=== PATIENT | female | born 1980 | race Caucasian/White ===

== ENCOUNTER 2024-11-12 21:03 | Observation (INO) | payer OTHER ==
--- NOTE | 2024-11-12 22:01 | ERPHSYRPT ---
- History of Present Illness Time Seen by Provider: 11/12/24 21:59 Historian: patient Exam Limitations: no limitations Patient Subjective Stated Complaint: PT. STATES, "I HAVE RT. LOWER QUADRANT ABDOMINAL PAIN STARTED THIS AM AROUND 7AM. IT HURTS WORSE WHEN I WALK OR STAND AND IT HELPS WITH I PUSH IN ON IT." Triage Nursing Assessment: PT. AMBULATED TO ROOM WITHOUT DIFF, A&OX3, SKIN P/W/D, RESP EVEN UNLABORED, GUARDING RT. LOWER ABD. Physician History: 44-year-old female presents to our ED with concerns of appendicitis. Patient is a reading assistant. Patient states her right lower quadrant abdominal pain started this morning. Pain has gotten progressively worse throughout the day. No trauma no fever. No vomiting. Symptoms are progressive. Symptoms are moderate in intensity. Pain worse with ambulation. Palpation reproduces the pain as well. Patient declined pain medication. Patient voices no other complaints or concerns at this time. Portions of this note were created with voice recognition technology. There may be grammatical, spelling, punctuation or sound alike errors Timing/Duration: today Activities at Onset: none Quality: aching Abdominal Pain Onset Location: RLQ Pain Radiation: no radiation Severity of Pain-Max: moderate Severity of Pain-Current: mild Modifying Factors: Improves With: nothing Associated Symptoms: denies symptoms Previous symptoms: no prior history Allergies/Adverse Reactions: Penicillins Allergy (Verified 11/12/24 22:32) Home Medications: Omeprazole 20 mg PO DAILY 11/12/24 [History] Hx Tetanus, Diphtheria Vaccination/Date Given: No Hx Influenza Vaccination/Date Given: No Hx Pneumococcal Vaccination/Date Given: Yes Immunizations Up to Date: No Travel Risk - International Travel Have you traveled outside of the country in past 3 weeks: No - Emerging Infectious Disease Are you exhibiting symptoms associated with any current EIDs: Yes Symptoms: Abdominal Pain - Review of Systems Constitutional: No Symptoms, No Fever, No Chills Eyes: No Symptoms Ears, Nose, & Throat: No Symptoms Respiratory: No Symptoms, No Cough, No Dyspnea Cardiac: No Symptoms, No Chest Pain, No Edema, No Syncope Abdominal/Gastrointestinal: No Symptoms, No Abdominal Pain, No Nausea, No Vomiting, No Diarrhea Genitourinary Symptoms: No Symptoms, No Dysuria Musculoskeletal: No Symptoms, No Back Pain, No Neck Pain Skin: No Symptoms, No Rash Neurological: No Symptoms, No Dizziness, No Focal Weakness, No Sensory Changes Psychological: No Symptoms Endocrine: No Symptoms Hematologic/Lymphatic: No Symptoms Immunological/Allergic: No Symptoms All Other Systems: Reviewed and Negative - Past Medical History Pertinent Past Medical History: Yes Neurological History: No Pertinent History ENT History: No Pertinent History Cardiac History: No Pertinent History Respiratory History: No Pertinent History Endocrine Medical History: No Pertinent History Musculoskeletal History: No Pertinent History GI Medical History: GERD History: No Pertinent History Psycho-Social History: No Pertinent History Female Reproductive Disorders: No Pertinent History - Past Surgical History Past Surgical History: No Neuro Surgical History: No Pertinent History Cardiac: No Pertinent History Respiratory: No Pertinent History Gastrointestinal: No Pertinent History Genitourinary: No Pertinent History Musculoskeletal: No Pertinent History Female Surgical History: No Pertinent History - Female History Hx Last Menstrual Period: 3 WKS AGO Hx Now: No - Social History Smoking Status: Never smoker Exposure to second hand smoke: No Drug Use: none - Social Determinants of Health Will the patient participate in the screening: Declined to provide - Nursing Vital Signs Nursing Vital Signs: Initial Vital Signs Temperature 97.4 F 11/12/24 21:03 Pulse Rate 96 H 11/12/24 21:03 Respiratory Rate 18 11/12/24 21:03 Blood Pressure 134/89 11/12/24 21:03 O2 Sat by Pulse Oximetry 100 11/12/24 21:03 Pain Scale Pain Intensity 5 - Physical Exam General Appearance: no apparent distress, alert Eye Exam: PERRL/EOMI, eyes nml inspection Ears, Nose, Throat Exam: normal ENT inspection, pharynx normal, moist mucous membranes Neck Exam: normal inspection, non-tender, supple, full range of motion Respiratory Exam: normal breath sounds, lungs clear, airway intact, No respiratory distress Cardiovascular Exam: regular rate/rhythm, normal heart sounds Gastrointestinal/Abdomen Exam: soft, No tenderness, No mass Back Exam: normal inspection, normal range of motion, No CVA tenderness, No vertebral tenderness Extremity Exam: normal inspection, normal range of motion, pelvis stable Neurologic Exam: alert, oriented x 3, cooperative, normal mood/affect, sensation nml, No motor deficits Skin Exam: normal color, warm, dry Lymphatic Exam: No adenopathy SpO2 Interpretation: normal SpO2: 100 O2 Delivery: Room Air - Course Nursing assessment & vital signs reviewed: Yes - CT Exams Abdomen/Pelvis CT Interpretation: Tele-radiologist Report (Appendicitis. Left adrenal lesion) Ordered Tests: Active Orders 24 hr Category Date Time Status IV Insertion STAT Care 11/12/24 21:53 Active ABDOMEN AND PELVIS W/0 CONTRAS [CT] Stat Exams 11/12/24 21:53 Completed CBC W DIFF Stat Lab 11/12/24 22:00 Completed CMP Stat Lab 11/12/24 22:00 Completed HCG QUALITATIVE, URINE Stat Lab 11/12/24 21:53 Completed UA W/RFX UR CULTURE Stat Lab 11/12/24 21:53 Completed Transfer Order Routine Transfer 11/13/24 Ordered Medication Summary Generic Name Dose Route Start Last Admin Trade Name Freq PRN Reason Stop Dose Admin Levofloxacin/Dextrose 500 mg in 100 mls @ 100 mls/hr 11/13/24 00:18 11/13/24 01:08 Levofloxacin 500mg/100ml D5w IV 11/13/24 01:17 100 mls/hr STAT STA 100 mls/hr Administration Discontinued Medications Generic Name Dose Route Start Last Admin Trade Name Freq PRN Reason Stop Dose Admin Metronidazole 500 mg in 100 mls @ 200 mls/hr 11/13/24 00:18 11/13/24 00:22 Flagyl 500 Mg Ivpb IV 11/13/24 00:47 200 mls/hr STAT STA 200 mls/hr Administration Metronidazole Confirm 11/13/24 00:21 Flagyl 500 Mg Ivpb Administered 11/13/24 00:22 Dose 500 mg in 100 mls @ ud IV .K-MED ONE Lab/Rad Data: Laboratory Result Diagrams 11/12/24 22:00 11/12/24 22:00 Laboratory Results 11/12/24 11/12/24 11/12/24 Range/Units 22:00 22:00 21:53 WBC 15.8 H (3.98-10.04) x10^3/uL RBC 4.77 (3.93-5.22) x10^6/uL Hgb 12.3 (11.2-15.7) g/dL Hct 37.8 (34.1-44.9) % MCV 79.2 L (79.4-94.8) fL MCH 25.8 (25.6-32.2) pg MCHC 32.5 (32.2-35.5) g/dL RDW 13.9 (11.7-14.4) % Plt Count 357 (182-369) x10^3/uL MPV 10.1 (9.4-12.3) fL Gran % 68.6 (34.0-71.1) % Immature Gran % (Auto) 0.4 (0.001-0.429) % Nucleat RBC Rel Count 0.0 (0.00-0.2) % Eos # (Auto) 0.15 (0.04-0.36) x10^3/uL Immature Gran # (Auto) 0.06 H (0.001-0.031) x10^3u/L Absolute Lymphs (auto) 3.67 (1.18-3.74) x10^3/uL Absolute Monos (auto) 1.03 H (0.24-0.86) x10^3/uL Absolute Nucleated RBC 0.00 (0.00-0.012) x10^3u/L Lymphocytes % 23.2 (19.3-51.7) % Monocytes % 6.5 (4.7-12.5) % Eosinophils % 0.9 (0.7-5.8) % Basophils % 0.4 (0.1-1.2) % Absolute Granulocytes 10.87 H (1.56-6.13) x10^3/uL Basophils # 0.06 (0.01-0.08) x10^3/uL Sodium 138 (135-145) mmol/L Potassium 4.0 (3.5-5.1) mmol/L Chloride 104 (98-107) mmol/L Carbon Dioxide 22 (22-30) mmol/L Anion Gap 15.3 H (5-15) MEQ/L BUN 17 (7-17) mg/dL Creatinine 0.74 (0.52-1.04) mg/dL Estimated GFR 103.5 ML/MIN Glucose 101 (74-106) mg/dL Calcium 8.8 (8.4-10.2) mg/dL Total Bilirubin 0.40 (0.2-1.3) mg/dL AST 23 (14-36) U/L ALT 17 (0-35) U/L Alkaline Phosphatase 68 (38-126) U/L Serum Total Protein 7.5 (6.3-8.2) g/dL Albumin 4.3 (3.5-5.0) g/dL Urine Color (Yellow) Urine Appearance (Clear) Urine pH (4.6-8.0) Ur Specific [place] (1.005-1.030) Urine Protein (Negative) Urine Glucose (UA) (Negative) mg/dL Urine Ketones (Negative) Urine Blood (Negative) Urine Nitrite (Negative) Urine Bilirubin (Negative) Urine Urobilinogen (0.2) mg/dL Ur Leukocyte Esterase (Negative) U Hyaline Cast (Auto) (0-2) /LPF Urine Microscopic RBC (0-5) /HPF Urine Microscopic WBC (0-5) /HPF Ur Epithelial Cells (None Seen) /HPF Urine Bacteria (None Seen) /HPF Urine Culture Reflexed (NO) Urine HCG, Qual NEGATIVE (NEGATIVE) 11/12/24 Range/Units 21:53 WBC (3.98-10.04) x10^3/uL RBC (3.93-5.22) x10^6/uL Hgb (11.2-15.7) g/dL Hct (34.1-44.9) % MCV (79.4-94.8) fL MCH (25.6-32.2) pg MCHC (32.2-35.5) g/dL RDW (11.7-14.4) % Plt Count (182-369) x10^3/uL MPV (9.4-12.3) fL Gran % (34.0-71.1) % Immature Gran % (Auto) (0.001-0.429) % Nucleat RBC Rel Count (0.00-0.2) % Eos # (Auto) (0.04-0.36) x10^3/uL Immature Gran # (Auto) (0.001-0.031) x10^3u/L Absolute Lymphs (auto) (1.18-3.74) x10^3/uL Absolute Monos (auto) (0.24-0.86) x10^3/uL Absolute Nucleated RBC (0.00-0.012) x10^3u/L Lymphocytes % (19.3-51.7) % Monocytes % (4.7-12.5) % Eosinophils % (0.7-5.8) % Basophils % (0.1-1.2) % Absolute Granulocytes (1.56-6.13) x10^3/uL Basophils # (0.01-0.08) x10^3/uL Sodium (135-145) mmol/L Potassium (3.5-5.1) mmol/L Chloride (98-107) mmol/L Carbon Dioxide (22-30) mmol/L Anion Gap (5-15) MEQ/L BUN (7-17) mg/dL Creatinine (0.52-1.04) mg/dL Estimated GFR ML/MIN Glucose (74-106) mg/dL Calcium (8.4-10.2) mg/dL Total Bilirubin (0.2-1.3) mg/dL AST (14-36) U/L ALT (0-35) U/L Alkaline Phosphatase (38-126) U/L Serum Total Protein (6.3-8.2) g/dL Albumin (3.5-5.0) g/dL Urine Color Yellow (Yellow) Urine Appearance Clear (Clear) Urine pH 5.0 (4.6-8.0) Ur Specific [place] >=1.030 A (1.005-1.030) Urine Protein Negative (Negative) Urine Glucose (UA) Negative (Negative) mg/dL Urine Ketones Negative (Negative) Urine Blood Negative (Negative) Urine Nitrite Negative (Negative) Urine Bilirubin Negative (Negative) Urine Urobilinogen 1.0 A (0.2) mg/dL Ur Leukocyte Esterase Negative (Negative) U Hyaline Cast (Auto) NONE SEEN (0-2) /LPF Urine Microscopic RBC 0-2 (0-5) /HPF Urine Microscopic WBC 0-2 (0-5) /HPF Ur Epithelial Cells Few (None Seen) /HPF Urine Bacteria None Seen (None Seen) /HPF Urine Culture Reflexed NO (NO) Urine HCG, Qual (NEGATIVE) - Progress Progress: improved Progress Note: 44-year-old female BMI of 44.6 presents to our ED for evaluation of right lower quadrant pain. Pain started this morning. Pain progressively worse throughout the day. Physical exam reveals right lower quadrant tenderness to palpation. I spoke to at approximately 12:30 AM. He accepts the consultation. He currently plans on performing an appendectomy at 530 this morning. I spoke to warehouse shipping supervisor. She will arrange appendectomy this morning with an incisi on time of 5:30 AM. Plan of care discussed with patient. She agrees to admission at [facility] for further evaluation and treatment. Patient is currently n.p.o. patient's last meal was 6 PM yesterday evening Portions of this note were created with voice recognition technology. There may be grammatical, spelling, punctuation or sound alike errors Complexity of problem addressed is moderate acute complicated. No critical care time. Complexity of data reviewed and analyzed is extensive. Test ordered chest reviewed results analyzed and correlated clinically with history and physical exam. Management discussed with hospitalist who accepts admission to observation. Case discussed with general surgeon. Risk of complication and or risk of morbidity/mortality of patient management is high. Patient requires hospitalization for further evaluation and treatment. Vital stable. Time spent admit patient is approximately 15 minutes. Plan of care established for shared decision making. No social determinants of health present to impede follow-up. Case discussed with hospitalist Dr. Freedman at 1:08 AM. Portions of this note were created with voice recognition technology. There may be grammatical, spelling, punctuation or sound alike errors 11/13/24 00:40 Discussed with : Mayda Counseled pt/family regarding: lab results, diagnosis, rad results - Departure Departure Disposition: Observation Clinical Impression: Left adrenal lesion, Appendicitis, Leukocytosis, Abdominal pain Condition: Stable Critical Care Time: No Referrals: DOCTOR,NO FAMILY [Primary Care Provider] - Follow up/PCP as directed
[2024-11-12 22:15] LABS: Absolute Neutrophil Ct (ANC) 10.87 x10^3/uL (1.56-6.13); BASOPHIL % 0.4 % (0.1-1.2); Basophil (Absolute #) 0.06 x10^3/uL (0.01-0.08); Eosinophil % 0.9 % (0.7-5.8); Eosinophil (Absolute #) 0.15 x10^3/uL (0.04-0.36); Hematocrit 37.8 % (34.1-44.9); Hemoglobin 12.3 g/dL (11.2-15.7); IMMATURE GRAN # 0.06 x10^3u/L (0.001-0.031); IMMATURE GRAN % 0.4 % (0.001-0.429); Lymphocyte (Absolute #) 3.67 x10^3/uL (1.18-3.74); Lymphocytes % 23.2 % (19.3-51.7); Mean Cell Volume 79.2 fL (79.4-94.8); Mean Corpuscular Hemoglobin 25.8 pg (25.6-32.2); Mean Corpuscular Hgb Concent. 32.5 g/dL (32.2-35.5); Mean Platelet Volume 10.1 fL (9.4-12.3); Monocyte (Absolute #) 1.03 x10^3/uL (0.24-0.86); Monocytes % 6.5 % (4.7-12.5); Neutrophil % 68.6 % (34.0-71.1); Platelet Count 357 x10^3/uL (182-369); Red Blood Count 4.77 x10^6/uL (3.93-5.22); Red Cell Distribution Width 13.9 % (11.7-14.4); White Blood Count 15.8 x10^3/uL (3.98-10.04)
[2024-11-12 22:18] LABS: HCG URINE TEST NEGATIVE (NEGATIVE)
[2024-11-12 22:22] LABS: Appearance Clear (Clear); Bacteria None Seen /HPF (None Seen); Bilirubin Negative (Negative); Blood Negative (Negative); Epithelial Cells Few /HPF (None Seen); Glucose, Urine Negative (Negative); Hyaline Casts NONE SEEN /LPF (0-2); Ketones Negative (Negative); Leukocyte Esterase Negative (Negative); Nitrite Negative (Negative); Protein,Urine Dip Negative (Negative); RBC 0-2 /HPF (0-5); Specific Gravity >=1.030 (1.005-1.030); WBC 0-2 /HPF (0-5)
[2024-11-12 22:28] LABS: ALBUMIN 4.3 g/dL (3.5-5.0); ANION GAP 15.3 MEQ/L (5-15); BILIRUBIN,TOTAL 0.4 mg/dL (0.2-1.3); Calcium 8.8 mg/dL (8.4-10.2); Creatinine 1 0.74 mg/dL (0.52-1.04); EST GLOMERULAR FILTRATION RATE 103.5 ML/MIN; Total Protein 7.5 g/dL (6.3-8.2)
--- NOTE | 2024-11-12 23:40 | XRAY ---
CLINICAL HISTORY: Pain COMPARISON: No prior studies are available for comparison. TECHNIQUE: Non-contrast CT of the abdomen and pelvis was performed, with the following protocol: axial images, and reconstructed coronal and sagittal images. No intravenous contrast was administered. One of the following dose reduction techniques was utilized for this exam: Automated exposure control, adjustment of the mA and/or kV according to patient size, and use of iterative reconstruction. FINDINGS: Abdomen: Liver: Normal in size, shape, and density. No focal lesions, cysts, or masses were identified. Gallbladder and Biliary System: The gallbladder is normal in size and shape. No wall thickening, pericholecystic fluid, or gallstones were identified. Pancreas: Pancreatic head, body, and tail are visualized and appear normal in size and density. No pancreatic masses or calcifications were noted. Spleen: Normal in size, shape, and density. No splenic lesions or masses were identified. Kidneys and Adrenal Glands: Both kidneys are normal in size, shape, and position. Cortical thickness is within normal limits. No renal calculi or hydronephrosis. A well-defined oval-shaped hypodense lesion is seen measuring 2.9 x 2.2 cm in the left adrenal gland with fatty attenuation. The right adrenal gland is unremarkable. Appendix: The appendix is seen dilated measuring about 11.5 mm in cross-section with loss of aeration and being fluid-filled with nearby fat stranding and without an appendicolith. No evidence of appendiceal abscess or perforation. Pelvis: Urinary Bladder: Normal in contour and wall thickness. No intraluminal lesions. Uterus: Normal in size and contour. No masses or abnormal thickening. Ovaries: Not well visualized but no gross abnormalities noted. Vagina: Normal in contour and wall thickness. Cervix: No evidence of mass or abnormal thickening. Peritoneal and Retroperitoneal Structures: No free fluid or abnormal fluid collections were identified within the abdomen or pelvis. Enlarged right iliac lymph nodes are noted. Bowel: The visualized bowel loops are normal in caliber and appearance. No evidence of bowel obstruction or wall thickening. Colonic fecal loading Bones and Soft Tissues: Soft tissues are unremarkable. No fractures or abnormal masses were identified. Bilateral sacroiliitis is noted. Thoracic degenerative changes. Small paraumbilical hernia with omental fat content. CT cuts taken in the lower chest show left lung lingular small pneumonic consolidation with atelectasis. IMPRESSION: 1. Radiological appearances raise suspicion of acute appendicitis. No evidence of perforation or phlegmon formation. Clinical and laboratory correlation is advised. 2. Colonic fecal loading. 3. Left adrenal hypodense lesion as described with fatty attenuation likely suggesting adenoma. Electronically Signed by: Fletcher Chong MD. (11/12/2024 23:35:25 EDT)
[2024-11-13] MEDS ORDERED: FLAGYL 500 MG IVPB 500 MG/100 ML BAG IV ONE (00:21)
[2024-11-13] MEDS: FLAGYL 500 MG IVPB 500 MG/100 ML BAG IV STA (00:22)
[2024-11-13] MEDS ORDERED: Levofloxacin 500MG/100ML D5W 500 MG/100 ML BAG IV ONE (01:07)
[2024-11-13] MEDS: Levofloxacin 500MG/100ML D5W 500 MG/100 ML BAG IV STA (01:08)
[2024-11-13] MEDS ORDERED: MORPHINE SULFATE 4 MG INJ IV PRN (02:19)
[2024-11-13 02:32] LABS: INR 0.92 (0.8-3.0); PROTIME 10.1 SECONDS (9.4-12.5); PTT 25.6 SECONDS (25.1-36.5)
[2024-11-13] MEDS: Sodium Chloride 0.9% 1000 ML 1,000 ML IV SCH ×2 (02:36→11:42)
--- NOTE | 2024-11-13 02:48 | PCM.HP ---
History of Present Illness - Chief Complaint Chief Complaint: abdominal pain Date: 11/13/24 History of Present Illness: 44-year-old woman with no significant past medical history who presents with the acute onset of right lower quadrant abdominal pain this morning. Pain has been constant, progressively worsening, until it has been intermittently severe. It is stabbing in nature, worse with movement, and relieved only by rest. Not associate with fever, nausea, or dysuria, although she feels more pain when her bladder is full and she needs to urinate. - Review of Systems All Other Systems: Reviewed and Negative Medications & Allergies Home Medications: Home Medication List Omeprazole 20 mg PO DAILY 11/12/24 [History Confirmed 11/12/24] Allergies/Adverse Reactions: Allergies Allergy/AdvReac Type Severity Reaction Status Date / Time No Known Drug Allergies Allergy Unverified 11/13/24 02:26 - Past Medical History Past Medical History: No Neurological History: No Pertinent History ENT History: No Pertinent History Cardiac History: No Pertinent History Respiratory History: No Pertinent History Endocrine Medical History: No Pertinent History Musculoskelatal History: No Pertinent History GI Medical History: No Pertinent History History: No Pertinent History Pyscho-Social History: No Pertinent History Reproductive Disorders: No Pertinent History - Female History Are you now?: No - Past Surgical History Past Surgical History: No Neuro Surgical History: No Pertinent History Cardiac History: No Pertinent History Respiratory Surgery: No Pertinent History GI Surgical History: No Pertinent History Genitourinary Surgical Hx: No Pertinent History Musculskeletal Surgical Hx: No Pertinent History Female Surgical History: No Pertinent History Other Surgical History: Hx of tooth removal, states she had general anesthesia for this procedure, no difficulties Significant Family History: diabetes - Social History Smoking Status: Never smoker Exposure to second hand smoke: No Alcohol: None Drug Use: none - Social Determinants of Health Will the patient participate in the screening: Yes Do you worry about a steady place to live?: No Do you have any problems with any of the following?: No known problems In the past 12 months,have you had to go without utilities?: No Have you or anyone in your house had to go without enough: No Transportation Issues: No Has anyone in your support network made you feel unsafe?: No Does the patient want assistance with any of the above?: No - Physical Exam Vital Signs: Vital Signs - 24 hr Temp Pulse Resp BP BP Pulse Ox 11/13/24 01:26 97.3 F 96 H 18 117/64 98 11/13/24 01:11 100 11/13/24 01:00 133/84 97 11/13/24 00:30 131/78 98 11/13/24 00:00 85 18 141/91 100 11/12/24 23:30 134/83 100 11/12/24 23:00 140/96 100 11/12/24 22:33 144/106 100 11/12/24 22:03 70 18 140/71 99 11/12/24 21:30 92 H 18 140/71 99 11/12/24 21:22 90 18 134/89 100 11/12/24 21:03 97.4 F 96 H 18 134/89 100 Physical Exam GEN: Sitting up in bed in no acute distress. HENT: Normocephalic, atraumatic. Moist mucous membranes. EYES: Normal inspection, anicteric sclera, extraocular movements intact. NECK: Supple, full range of motion CV: Regular rate and rhythm, no murmurs, no gallops. No JVD or edema. PULM: Clear to auscultation bilaterally, no work of breathing. On room air. ABD: Tender without guarding or rebound. Nondistended. MSK: No joint effusions, full range of motion SKIN: No rashes, normal color. NEURO: Face symmetric, no focal motor or sensory deficits. PSYCH: Alert, oriented x 3 Results - Labs Lab/Micro Results: Lab Results-Last 24 Hours 11/12/24 11/12/24 11/12/24 Range/Units 21:53 21:53 22:00 WBC 15.8 H (3.98-10.04) x10^3/uL RBC 4.77 (3.93-5.22) x10^6/uL Hgb 12.3 (11.2-15.7) g/dL Hct 37.8 (34.1-44.9) % MCV 79.2 L (79.4-94.8) fL MCH 25.8 (25.6-32.2) pg MCHC 32.5 (32.2-35.5) g/dL RDW 13.9 (11.7-14.4) % Plt Count 357 (182-369) x10^3/uL MPV 10.1 (9.4-12.3) fL Gran % 68.6 (34.0-71.1) % Immature Gran % (Auto) 0.4 (0.001-0.429) % Nucleat RBC Rel Count 0.0 (0.00-0.2) % Eos # (Auto) 0.15 (0.04-0.36) x10^3/uL Immature Gran # (Auto) 0.06 H (0.001-0.031) x10^3u/L Absolute Lymphs (auto) 3.67 (1.18-3.74) x10^3/uL Absolute Monos (auto) 1.03 H (0.24-0.86) x10^3/uL Absolute Nucleated RBC 0.00 (0.00-0.012) x10^3u/L Lymphocytes % 23.2 (19.3-51.7) % Monocytes % 6.5 (4.7-12.5) % Eosinophils % 0.9 (0.7-5.8) % Basophils % 0.4 (0.1-1.2) % Absolute Granulocytes 10.87 H (1.56-6.13) x10^3/uL Basophils # 0.06 (0.01-0.08) x10^3/uL Sodium (135-145) mmol/L Potassium (3.5-5.1) mmol/L Chloride (98-107) mmol/L Carbon Dioxide (22-30) mmol/L Anion Gap (5-15) MEQ/L BUN (7-17) mg/dL Creatinine (0.52-1.04) mg/dL Estimated GFR ML/MIN Glucose (74-106) mg/dL Calcium (8.4-10.2) mg/dL Total Bilirubin (0.2-1.3) mg/dL AST (14-36) U/L ALT (0-35) U/L Alkaline Phosphatase (38-126) U/L Serum Total Protein (6.3-8.2) g/dL Albumin (3.5-5.0) g/dL Urine Color Yellow (Yellow) Urine Appearance Clear (Clear) Urine pH 5.0 (4.6-8.0) Ur Specific [place] >=1.030 A (1.005-1.030) Urine Protein Negative (Negative) Urine Glucose (UA) Negative (Negative) mg/dL Urine Ketones Negative (Negative) Urine Blood Negative (Negative) Urine Nitrite Negative (Negative) Urine Bilirubin Negative (Negative) Urine Urobilinogen 1.0 A (0.2) mg/dL Ur Leukocyte Esterase Negative (Negative) U Hyaline Cast (Auto) NONE SEEN (0-2) /LPF Urine Microscopic RBC 0-2 (0-5) /HPF Urine Microscopic WBC 0-2 (0-5) /HPF Ur Epithelial Cells Few (None Seen) /HPF Urine Bacteria None Seen (None Seen) /HPF Urine Culture Reflexed NO (NO) Urine HCG, Qual NEGATIVE (NEGATIVE) 11/12/24 Range/Units 22:00 WBC (3.98-10.04) x10^3/uL RBC (3.93-5.22) x10^6/uL Hgb (11.2-15.7) g/dL Hct (34.1-44.9) % MCV (79.4-94.8) fL MCH (25.6-32.2) pg MCHC (32.2-35.5) g/dL RDW (11.7-14.4) % Plt Count (182-369) x10^3/uL MPV (9.4-12.3) fL Gran % (34.0-71.1) % Immature Gran % (Auto) (0.001-0.429) % Nucleat RBC Rel Count (0.00-0.2) % Eos # (Auto) (0.04-0.36) x10^3/uL Immature Gran # (Auto) (0.001-0.031) x10^3u/L Absolute Lymphs (auto) (1.18-3.74) x10^3/uL Absolute Monos (auto) (0.24-0.86) x10^3/uL Absolute Nucleated RBC (0.00-0.012) x10^3u/L Lymphocytes % (19.3-51.7) % Monocytes % (4.7-12.5) % Eosinophils % (0.7-5.8) % Basophils % (0.1-1.2) % Absolute Granulocytes (1.56-6.13) x10^3/uL Basophils # (0.01-0.08) x10^3/uL Sodium 138 (135-145) mmol/L Potassium 4.0 (3.5-5.1) mmol/L Chloride 104 (98-107) mmol/L Carbon Dioxide 22 (22-30) mmol/L Anion Gap 15.3 H (5-15) MEQ/L BUN 17 (7-17) mg/dL Creatinine 0.74 (0.52-1.04) mg/dL Estimated GFR 103.5 ML/MIN Glucose 101 (74-106) mg/dL Calcium 8.8 (8.4-10.2) mg/dL Total Bilirubin 0.40 (0.2-1.3) mg/dL AST 23 (14-36) U/L ALT 17 (0-35) U/L Alkaline Phosphatase 68 (38-126) U/L Serum Total Protein 7.5 (6.3-8.2) g/dL Albumin 4.3 (3.5-5.0) g/dL Urine Color (Yellow) Urine Appearance (Clear) Urine pH (4.6-8.0) Ur Specific [place] (1.005-1.030) Urine Protein (Negative) Urine Glucose (UA) (Negative) mg/dL Urine Ketones (Negative) Urine Blood (Negative) Urine Nitrite (Negative) Urine Bilirubin (Negative) Urine Urobilinogen (0.2) mg/dL Ur Leukocyte Esterase (Negative) U Hyaline Cast (Auto) (0-2) /LPF Urine Microscopic RBC (0-5) /HPF Urine Microscopic WBC (0-5) /HPF Ur Epithelial Cells (None Seen) /HPF Urine Bacteria (None Seen) /HPF Urine Culture Reflexed (NO) Urine HCG, Qual (NEGATIVE) - Radiology Impressions Radiology Exams & Impressions: Radiology Procedures Category Date Time Status ABDOMEN AND PELVIS W/0 CONTRAS [CT] Stat Exams 11/12/24 21:[address] abdomen/pelvis appendix dilated 11.5 mm and nearby fat stranding, without evidence of abscess or perforation. Assessment/Plan (1) Appendicitis Current Visit: Yes Status: Acute Assessment & Plan: 44-year-old woman with no significant past medical history who presents with right lower quadrant pain and leukocytosis, found to have acute appendicitis. Dr. Brizuela consulted by the ED, and wants to take patient to the OR directly this morning at 5 AM. Already given Levaquin/Flagyl in the ED, and will not need further antibiotics postop PRN morphine for pain N.p.o. Repeat CBC in the morning CODE STATUS: Full code Prophylaxis: Low risk, encourage ambulation Diet: N.p.o. Dispo: Place in observation Entirety of encounter took place via live audio/video telemedicine device, with remote physician and patient in hospital, with the assistance of bedside nurse. Code(s): K37 - UNSPECIFIED APPENDICITIS Telemedicine Encounter - Telemedicine Encounter Telemedicine Encounter: "The entirety of this encounter was performed via Telemedicine" This visit was performed using real-time audio and video connection between my location and thepatients locationwith the assistance of a surrogateat the patients location. Written or verbal consent was obtained from the patien t/guardian to perform this visit usingsynchronoustelemedicine technology. Any patient questions regarding the telemedicine interaction were answered.
[2024-11-13] MEDS: Reglan 10 MG/2 ML IV ONE (04:12)
[2024-11-13] MEDS: CEFOXITIN 2 GM/100 ML NACL IVPB 2 GM/100 ML IVPB IV ONE (04:12)
[2024-11-13] MEDS: SOD CITRATE-CITRIC ACID SOLN PO ONE (04:12)
[2024-11-13] MEDS: Pepcid 20 MG VIAL IV ONE (04:12)
[2024-11-13] MEDS ORDERED: Sensorcaine 0.25% 10 ML ONE (04:16)
[2024-11-13] MEDS ORDERED: Zofran 4 MG/2 ML VIAL ONE (04:40)
[2024-11-13] MEDS ORDERED: BRIDION 200MG/2ML IV ONE ×2 (04:40→05:38)
[2024-11-13] MEDS ORDERED: propofoL IV ONE ×2 (04:40→05:03)
[2024-11-13] MEDS ORDERED: ROCURONIUM BROMIDE IV ONE ×2 (04:40→09:06)
[2024-11-13] MEDS ORDERED: Xylocaine-Mpf 2% 5 Ml Vial ONE (04:40)
[2024-11-13] MEDS ORDERED: dexAMETHasone sodium phosphate ONE (04:40)
[2024-11-13] MEDS ORDERED: DEXMEDETOMIDINE 80 MCG/20ML-NS IV ONE (04:40)
[2024-11-13] MEDS ORDERED: Versed 2 MG/2 ML Injection ONE (04:42)
[2024-11-13] MEDS ORDERED: SUBLIMAZE 100 MCG/2 ML ONE ×2 (04:43→06:03)
[2024-11-13] MEDS ORDERED: Ephedrine Sulfate 50 MG/ML ONE (05:17)
[2024-11-13] MEDS ORDERED: Compazine 10 MG/2 ML ONE (06:04)
[2024-11-13] MEDS: Zofran 4 MG/2 ML VIAL IV PRN (07:35)
[2024-11-13] MEDS: Protonix 40MG Tablet PO SCH (07:35)
[2024-11-13 08:45] LABS: ANION GAP 13.3 MEQ/L (5-15); Creatinine 1 0.56 mg/dL (0.52-1.04); EST GLOMERULAR FILTRATION RATE 116.8 ML/MIN; Potassium 3.9 mmol/L (3.5-5.1)
[2024-11-13 08:50] LABS: Hematocrit 35.8 % (34.1-44.9); Hemoglobin 11.5 g/dL (11.2-15.7); Mean Cell Volume 80.3 fL (79.4-94.8); Mean Corpuscular Hemoglobin 25.8 pg (25.6-32.2); Mean Corpuscular Hgb Concent. 32.1 g/dL (32.2-35.5); Mean Platelet Volume 10.4 fL (9.4-12.3); Platelet Count 283 x10^3/uL (182-369); Red Blood Count 4.46 x10^6/uL (3.93-5.22); Red Cell Distribution Width 14.1 % (11.7-14.4); White Blood Count 9.2 x10^3/uL (3.98-10.04)
[2024-11-13] MEDS ORDERED: NON-FORMULARY ITEM (Omeprazole [Omeprazole] 20 MG Tab.Rap.Dr) PO SCH (10:00)
[2024-11-13] MEDS: PIPERACILLIN/TAZOBACTAM 3.375 GM in Sodium Chloride 100ML MINI-BAG PLUS 100 ML IV SCH (11:42)
[2024-11-13] MEDS: NORCO 5/325 MG PO PRN (15:03)
[2024-11-13] MEDS: MORPHINE SULFATE 4 MG INJ IV PRN (22:34)
[2024-11-14 05:00] LABS: Absolute Neutrophil Ct (ANC) 7.28 x10^3/uL (1.56-6.13); BASOPHIL % 0.3 % (0.1-1.2); Basophil (Absolute #) 0.03 x10^3/uL (0.01-0.08); Eosinophil % 0.2 % (0.7-5.8); Eosinophil (Absolute #) 0.02 x10^3/uL (0.04-0.36); Hematocrit 32.4 % (34.1-44.9); Hemoglobin 10.1 g/dL (11.2-15.7); IMMATURE GRAN # 0.05 x10^3u/L (0.001-0.031); IMMATURE GRAN % 0.5 % (0.001-0.429); Lymphocyte (Absolute #) 3.02 x10^3/uL (1.18-3.74); Lymphocytes % 27.2 % (19.3-51.7); Mean Corpuscular Hemoglobin 25.3 pg (25.6-32.2); Mean Corpuscular Hgb Concent. 31.2 g/dL (32.2-35.5); Mean Platelet Volume 10.3 fL (9.4-12.3); Monocyte (Absolute #) 0.69 x10^3/uL (0.24-0.86); Monocytes % 6.2 % (4.7-12.5); Neutrophil % 65.6 % (34.0-71.1); Platelet Count 301 x10^3/uL (182-369); Red Cell Distribution Width 14.4 % (11.7-14.4); White Blood Count 11.1 x10^3/uL (3.98-10.04)
--- NOTE | 2024-11-14 05:14 | PCM.DS ---
Discharge Summary Date of Admission: 11/13/24 01:20 Date of Discharge: 11/14/24 Admitting Physician: MICHEL BARKLEY MD Primary Care Provider: NO FAMILY DOCTOR Allergies Allergies No Known Drug Allergies Allergy (Unverified 11/13/24 02:26) Hospital Summary - Hospital Course Hospital Course: A 44-year-old woman with no significant medical history presented 11/12/24 to ED with acute-onset, progressively worsening right lower quadrant abdominal pain. The pain was stabbing, exacerbated by movement, and temporarily relieved with rest. She reported increased discomfort with bladder distension but denied fever, nausea, or dysuria. Initial evaluation revealed leukocytosis, and imaging confirmed acute appendicitis. Following consultation with Dr. Ulrich, she underwent an uncomplicated laparoscopic appendectomy on 11/13/2024. Postoperatively, she recovered well, with adequate pain control and tolerance of oral intake. She received a single dose of Levofloxacin and Metronidazole in the emergency department. She remains hemodynamically stable. Patient has been cleared by surgery for discharge with one week follow up. Will send out Augmentin per surgery and [place] for pain. Discharge Note New Diagnosis: Acute appendicitis New Medications:Augmentin/[place] Follow Up: General Surgery Results pending: Pathology I spent 35 minutes [id number] with the patient on the day of discharge performing discharge exam, discussing hospital stay and discharge instructions with patient and caregivers, preparation of discharge records, prescriptions & referral forms and addressing any questions/concerns the patient had as docum ented above. - Vitals & Intake/Output Vital Signs: Vital Signs Temperature 97.6 F 11/14/24 04:00 Pulse Rate 85 11/14/24 04:00 Respiratory Rate 16 11/14/24 04:00 Blood Pressure 108/62 11/14/24 04:00 O2 Sat by Pulse Oximetry 94 L 11/14/24 04:00 Intake & Output: Intake & Output 11/11/24 11/12/24 11/13/24 11/14/24 11:59 11:59 11:59 11:59 Intake Total 120 1552 Balance 120 1552 Weight 118.5 kg - Lab Result Diagrams: 11/14/24 04:32 11/14/24 04:32 Lab Results-Last 24 Hrs: Lab Results-Last 24 Hours 11/13/24 11/13/24 Range/Units 08:15 08:15 WBC 9.2 (3.98-10.04) x10^3/uL RBC 4.46 (3.93-5.22) x10^6/uL Hgb 11.5 (11.2-15.7) g/dL Hct 35.8 (34.1-44.9) % MCV 80.3 (79.4-94.8) fL MCH 25.8 (25.6-32.2) pg MCHC 32.1 L (32.2-35.5) g/dL RDW 14.1 (11.7-14.4) % Plt Count 283 (182-369) x10^3/uL MPV 10.4 (9.4-12.3) fL Sodium 137 (135-145) mmol/L Potassium 3.9 (3.5-5.1) mmol/L Chloride 108 H (98-107) mmol/L Carbon Dioxide 20 L (22-30) mmol/L Anion Gap 13.3 (5-15) MEQ/L BUN 14 (7-17) mg/dL Creatinine 0.56 (0.52-1.04) mg/dL Estimated GFR 116.8 ML/MIN Glucose 145 H (74-106) mg/dL Calcium 8.0 L (8.4-10.2) mg/dL - Radiology Exams Ordered Rad Exams-Entire Visit: Radiology Procedures Category Date Time Status ABDOMEN AND PELVIS W/0 CONTRAS [CT] Stat Exams 11/12/24 21:53 Completed Discharge Exam General Appearance: no apparent distress Neurologic Exam: alert, oriented x 3, cooperative Eye Exam: PERRL Ears, Nose, Throat Exam: normal ENT inspection Neck Exam: normal inspection Respiratory Exam: normal breath sounds, lungs clear Cardiovascular Exam: regular rate/rhythm, normal heart sounds Gastrointestinal/Abdomen Exam: soft, normal bowel sounds Pelvic Exam: deferred Rectal Exam: deferred Back Exam: normal inspection Extremity Exam: normal inspection Skin Exam: other (3 puncture surgical sites covered in gauze/tegaderm CDI) Final Diagnosis/Problem List - Final Discharge Diagnosis/Problem (1) Appendicitis Current Visit: Yes Status: Resolved Code(s): K37 - UNSPECIFIED APPENDICITIS (2) Status post laparoscopic appendectomy Current Visit: Yes Status: Acute Code(s): Z90.49 - ACQUIRED ABSENCE OF OTHER SPECIFIED PARTS OF DIGESTIVE TRACT (3) Metabolic acidosis Current Visit: Yes Status: Acute Code(s): E87.20 - ACIDOSIS, UNSPECIFIED (4) Leukocytosis Current Visit: Yes Status: Acute Code(s): D72.829 - ELEVATED WHITE BLOOD CELL COUNT, UNSPECIFIED - Discharge Discharge Date: 11/14/24 Disposition: Home, Self-Care Condition: Stable Prescriptions: New Amox Tr/Potass Clav. 875 mg [Augmentin 875-125 Tablet] 875 mg PO BID 7 Days #14 tablet Hydrocodone/Acetaminophen [Hydrocodone-Acetamin 5-325 mg] 1 tab PO Q4HPRN PRN 3 Days #18 tablet MDD 6 PRN Reason: Pain Continue Omeprazole 20 mg PO DAILY Follow up with: PERRY ULRICH [COURTESY STAFF] - 11/19/24 9:40 am (AT [facility])
[2024-11-14 05:22] LABS: ALBUMIN 3.2 g/dL (3.5-5.0); ANION GAP 11.6 MEQ/L (5-15); BILIRUBIN,TOTAL 0.4 mg/dL (0.2-1.3); Creatinine 1 0.57 mg/dL (0.52-1.04); EST GLOMERULAR FILTRATION RATE 116.3 ML/MIN; Potassium 3.7 mmol/L (3.5-5.1); Total Protein 6.1 g/dL (6.3-8.2)
[2024-11-14 07:57] VITALS: RESP 17
--- NOTE | 2024-11-14 09:56 | OP ---
SURGERY DATE/TIME: 11/13/2024 [id number] PREOPERATIVE DIAGNOSES: Acute right lower quadrant pain and leukocytosis suspicious for acute appendicitis. POSTOPERATIVE DIAGNOSIS: Acute nonperforated appendicitis. PROCEDURE: Laparoscopic appendectomy. SURGEON: Chase Brizuela MD ANESTHESIA: General. ESTIMATED BLOOD LOSS: Minimal. INDICATIONS: As noted above. Consent was obtained. DESCRIPTION OF PROCEDURE AND FINDINGS: The patient was taken to the operating room. General anesthesia was induced. Abdomen was prepped and draped in the usual sterile fashion. After official time-out, no disagreement in planned procedure. Transverse incision was made in the supraumbilical area. Fascia grasped and pulled upward. Veress needle inserted. Tested with saline. Pneumoperitoneum, opening pressure of 0 to 15. A 5 mm bladeless port and camera were inserted without difficulty followed by lower midline 5 mm port and a 12 mm right upper quadrant port. There was no evidence of any intra-abdominal injuries secondary to trocar or Veress needle placement. There was some small bowel erythema in the last couple of feet of small bowel. No evidence of any Meckel's. There is a small amount of cloudy fluid down in the deep pelvis. The appendix itself was definitely swollen in the distal half consistent with acute appendicitis. It did not appear to be grossly macroperforated at this point, it was felt she warranted appendectomy. Liver was a little bit fatty infiltrated. Gallbladder was smooth. At this point, the appendix was grasped. We will elevate it upward, stapled it at the base of the appendix with the Endo JAIRON stapler. Sequential reload and fire across the residual mesoappendix was placed in the provided bag and pulled out the 12 mm port site, enlarging slightly to clamp. This was passed off. This fascial defect was closed with puncture closure device and #1 Vicryl under direct vision of the camera. Suture prior to tying it was temporarily tagged. The port was replaced. Copious irrigation was accomplished in the right lower quadrant and pelvis irrigated clear. Staple line was intact on mesoappendix. No signs of any active bleeding. Staple line was intact on the cecum. No signs of any leakage. It was felt there was no benefit of drain placement. At this point, pneumoperitoneum decompressed. The 12 fascia defect with #1 Vicryl was secured closing the defect. The wound was irrigated out. Skin incision closed with 4-0 Vicryl. Then, 0.25% Marcaine local injected along each skin incision and fascial defect. The patient tolerated the procedure well. There were no immediate complications. We will see if she has family in the waiting area. She can continue on IV antibiotics today, possibly home tomorrow.
--- NOTE | 2024-11-14 10:01 | HP ---
HISTORY AND PHYSICAL HISTORY OF PRESENT ILLNESS: A 45-year-old female who says she has pain localized to right lower quadrant and has some nausea. She had a leukocytosis. ER said it was around 15.8. She had a CT scan done and showed findings consistent with acute appendicitis. PAST MEDICAL HISTORY: She denied any chronic illnesses other than reflux. HOME MEDICATIONS: She takes omeprazole. ALLERGIES: No known drug allergies. PAST SURGICAL HISTORY: She has had some dental surgery. Denied any abdominal surgery in the past. SOCIAL HISTORY: No alcohol abuse. FAMILY HISTORY: Negative for chronic illnesses according to the patient's report to me. REVIEW OF SYSTEMS: Twelve systems reviewed. Per admission assessment pertinent present noted above, abdominal pain, nausea. She is a little bit overweight. PHYSICAL EXAMINATION: GENERAL: Slightly uncomfortable. Otherwise, no acute distress. HEENT: Sclerae anicteric. Extraocular muscles intact. Mucous membranes moist. NECK: No JVD. CARDIOVASCULAR: Regular rhythm. RESPIRATORY: Equal excursion. Nonlabored breathing. ABDOMEN: There is some tenderness in the right lower quadrant. A little bit of voluntary guarding. No rebound. EXTREMITIES: No edema. NEUROLOGIC: Alert. PSYCHIATRIC: Appropriate mood and affect. LABORATORY DATA AND TESTS: White count was 9.9, hemoglobin 13.3, platelets 324,000. Liver function tests unremarkable. They said she had a little bit of UTI. Otherwise, CT films were personally reviewed by myself, report noted. ASSESSMENT: Acute right lower quadrant pain. CT, physical exam and history shows patient for acute appendicitis. She will be admitted. She will undergo laparoscopic appendectomy if possible when an OR time available. General risks of bleeding, infection, trocar injury, hernia, risk of bowel or bladder blood vessels issues or injury, risks of cecal injury, intra-abdominal abscess or fistula formation, possible need for percutaneous or open drainage at a later date, general risk of anesthesia, DVT, PE, pneumonia, possible need for open procedure, possibility of finding normal appendix likely would remove incidentally, and look for other etiology that might be taken care of surgically but was not limited to. She understands. She is agreeable to plan when OR availability for diagnostic laparoscopic appendectomy, possible open when OR time available.
--- NOTE | 2024-11-14 11:26 | PCM.DS ---
Discharge Summary Date of Admission: 11/13/24 01:20 Date of Discharge: 11/14/24 Admitting Physician: MICHEL BARKLEY MD Primary Care Provider: NO FAMILY DOCTOR Allergies Allergies No Known Drug Allergies Allergy (Unverified 11/13/24 02:26) Hospital Summary - Vitals & Intake/Output Vital Signs: Vital Signs Temperature 97.5 F 11/14/24 07:56 Pulse Rate 75 11/14/24 07:56 Respiratory Rate 17 11/14/24 07:56 Blood Pressure 99/54 11/14/24 07:56 O2 Sat by Pulse Oximetry 98 11/14/24 07:56 Intake & Output: Intake & Output 11/11/24 11/12/24 11/13/24 11/14/24 11:59 11:59 11:59 11:59 Intake Total 120 1672 Balance 120 1672 Weight 118.5 kg - Lab Result Diagrams: 11/14/24 04:32 11/14/24 04:32 Lab Results-Last 24 Hrs: Lab Results-Last 24 Hours 11/14/24 11/14/24 Range/Units 04:32 04:32 WBC 11.1 H (3.98-10.04) x10^3/uL RBC 4.00 (3.93-5.22) x10^6/uL Hgb 10.1 L (11.2-15.7) g/dL Hct 32.4 L (34.1-44.9) % MCV 81.0 (79.4-94.8) fL MCH 25.3 L (25.6-32.2) pg MCHC 31.2 L (32.2-35.5) g/dL RDW 14.4 (11.7-14.4) % Plt Count 301 (182-369) x10^3/uL MPV 10.3 (9.4-12.3) fL Gran % 65.6 (34.0-71.1) % Immature Gran % (Auto) 0.5 H (0.001-0.429) % Nucleat RBC Rel Count 0.0 (0.00-0.2) % Eos # (Auto) 0.02 L (0.04-0.36) x10^3/uL Immature Gran # (Auto) 0.05 H (0.001-0.031) x10^3u/L Absolute Lymphs (auto) 3.02 (1.18-3.74) x10^3/uL Absolute Monos (auto) 0.69 (0.24-0.86) x10^3/uL Absolute Nucleated RBC 0.00 (0.00-0.012) x10^3u/L Lymphocytes % 27.2 (19.3-51.7) % Monocytes % 6.2 (4.7-12.5) % Eosinophils % 0.2 L (0.7-5.8) % Basophils % 0.3 (0.1-1.2) % Absolute Granulocytes 7.28 H (1.56-6.13) x10^3/uL Basophils # 0.03 (0.01-0.08) x10^3/uL Sodium 137 (135-145) mmol/L Potassium 3.7 (3.5-5.1) mmol/L Chloride 110 H (98-107) mmol/L Carbon Dioxide 20 L (22-30) mmol/L Anion Gap 11.6 (5-15) MEQ/L BUN 10 (7-17) mg/dL Creatinine 0.57 (0.52-1.04) mg/dL Estimated GFR 116.3 ML/MIN Glucose 110 H (74-106) mg/dL Calcium 8.0 L (8.4-10.2) mg/dL Total Bilirubin 0.40 (0.2-1.3) mg/dL AST 21 (14-36) U/L ALT 16 (0-35) U/L Alkaline Phosphatase 55 (38-126) U/L Serum Total Protein 6.1 L (6.3-8.2) g/dL Albumin 3.2 L (3.5-5.0) g/dL - Radiology Exams Ordered Rad Exams-Entire Visit: Radiology Procedures Category Date Time Status ABDOMEN AND PELVIS W/0 CONTRAS [CT] Stat Exams 11/12/24 21:53 Completed Final Diagnosis/Problem List - Final Discharge Diagnosis/Problem (1) Appendicitis Current Visit: Yes Status: Resolved Code(s): K37 - UNSPECIFIED APPENDICITIS (2) Status post laparoscopic appendectomy Current Visit: Yes Status: Acute Code(s): Z90.49 - ACQUIRED ABSENCE OF OTHER SPECIFIED PARTS OF DIGESTIVE TRACT (3) Metabolic acidosis Current Visit: Yes Status: Acute Code(s): E87.20 - ACIDOSIS, UNSPECIFIED (4) Leukocytosis Current Visit: Yes Status: Acute Code(s): D72.829 - ELEVATED WHITE BLOOD CELL COUNT, UNSPECIFIED - Discharge Discharge Date: 11/14/24 Disposition: Home, Self-Care Condition: Stable Prescriptions: New Amox Tr/Potass Clav. 875 mg [Augmentin 875-125 Tablet] 875 mg PO BID 7 Days #14 tablet Hydrocodone/Acetaminophen [Hydrocodone-Acetamin 5-325 mg] 1 tab PO Q4HPRN PRN 3 Days #18 tablet MDD 6 PRN Reason: Pain Continue Omeprazole 20 mg PO DAILY Follow up with: PERRY ULRICH [COURTESY STAFF] - 11/19/24 9:40 am (AT [facility])
[2024-11-14 12:14] VITALS: BP 116/65; PULSE 79; TEMP 97.3; O2SAT 100
== END 2024-11-14 13:00 | disposition home or self-care (01) ==
LOC: ED 21:03 → MED SURG 11-13 01:20
PROVIDERS: ADMIT Internal Medicine; ATTEND Internal Medicine
DX: K37 Unspecified appendicitis (principal); E87.20 Acidosis, unspecified; D72.829 Elevated white blood cell count, unspecified
CPT/HCPCS: 36415; 44970; 74176; 80048; 80053; 81001; 81025; 85025; 85027; 85610; 85730; 96375; 99285; G0378; Q3014; 99140; J0694; J1100; J1956; J2250; J2270; J2405; J2704; J3010; A9270-GY

== ENCOUNTER 2024-12-06 18:24 | Emergency (ER) | payer OTHER ==
[2024-12-06 18:45] VITALS: TEMP 98.5; O2SAT 99
--- NOTE | 2024-12-06 19:00 | ERPHSYRPT ---
- History of Present Illness Time Seen by Provider: 12/06/24 18:33 Source: patient, family Exam Limitations: no limitations Patient Subjective Stated Complaint: C/O right ankle injury. States jumped out of her boat around 12noon today and hurt her ankle. Triage Nursing Assessment: Patient brought back to ER in a W/C. She was able to transfer self from chair to bed but did not place her right foot on the floor. Right outer ankle is bruised and swollen. She is alert and oriented. Physician History: 44 years old female presented in the ER with complaint of right ankle pain and swelling after she tried to jump out of her boat around noon time and twisted her ankle. Patient reports gradually increasing moderate to severe sharp shooting pain with increased swelling anterior shoulder, unable to have any weightbearing. No numbness or tingling distally. No injury anywhere else. Diffuse swelling anteriorly right ankle with minimal swelling of the lateral malleolus area. Minimal tenderness on the both malleoli. Intact range of motion but painful. Distal neurovascular intact. She is given pain medication for symptomatic relief. X-rays are negative for fracture dislocation reviewed by me, official final read is pending. I believe patient has ankle sprain, placed in a long walking boot and recommended taking pain medications and outpatient follow-up. Discussed signs symptoms of worsening return to ER which she seems understanding. Stable for discharge. Allergies/Adverse Reactions: No Known Drug Allergies Allergy (Verified 12/06/24 18:33) Home Medications: Omeprazole 20 mg PO DAILY 11/12/24 [History] Hx Tetanus, Diphtheria Vaccination/Date Given: Yes Hx Influenza Vaccination/Date Given: No Hx Pneumococcal Vaccination/Date Given: Yes Immunizations Up to Date: Yes Travel Risk - International Travel Have you traveled outside of the country in past 3 weeks: No - Emerging Infectious Disease Are you exhibiting symptoms associated with any current EIDs: No Symptoms: Abdominal Pain - Review of Systems Constitutional: No Symptoms Ears, Nose, & Throat: No Symptoms Respiratory: No Symptoms Cardiac: No Symptoms Abdominal/Gastrointestinal: No Symptoms Musculoskeletal: Fall, Injury, Joint Pain, Joint Swelling Skin: No Symptoms Neurological: No Symptoms - Past Medical History Pertinent Past Medical History: No Neurological History: No Pertinent History ENT History: No Pertinent History Cardiac History: No Pertinent History Respiratory History: No Pertinent History Endocrine Medical History: No Pertinent History Musculoskeletal History: No Pertinent History GI Medical History: No Pertinent History History: No Pertinent History Psycho-Social History: No Pertinent History Female Reproductive Disorders: No Pertinent History - Past Surgical History Past Surgical History: Yes Neuro Surgical History: No Pertinent History Cardiac: No Pertinent History Respiratory: No Pertinent History Gastrointestinal: Appendectomy Genitourinary: No Pertinent History Musculoskeletal: No Pertinent History Female Surgical History: No Pertinent History Significant Family History: diabetes - Female History Hx Last Menstrual Period: 3 WKS AGO Hx Now: No - Social History Smoking Status: Never smoker Exposure to second hand smoke: No Drug Use: none - Social Determinants of Health Will the patient participate in the screening: Yes Do you worry about a steady place to live?: No Do you have any problems with any of the following?: No known problems In the past 12 months,have you had to go without utilities?: No Transportation Issues: No Has anyone in your support network made you feel unsafe?: No Have you or anyone in your house had to go w/o enough food: No - Nursing Vital Signs Nursing Vital Signs: Initial Vital Signs Temperature 98.5 F 12/06/24 18:30 Pulse Rate 92 H 12/06/24 18:30 Respiratory Rate 18 12/06/24 18:30 Blood Pressure 138/90 12/06/24 18:30 O2 Sat by Pulse Oximetry 99 12/06/24 18:30 Pain Scale Pain Intensity 7 - Physical Exam General Appearance: no apparent distress Neck Exam: normal inspection, full range of motion Cardiovascular/Respiratory Exam: normal breath sounds, regular rate/rhythm Ankle Exam: right ankle: bone tenderness, limited range of motion, pain, soft tissue tenderness, swelling, left ankle: non-tender, normal inspection, normal range of motion, no evidence of injury Foot Exam: right foot: bone tenderness (Proximal anterior foot), pain, soft tissue tenderness, swelling Neuro/Tendon Exam: normal sensation, normal motor functions Mental Status Exam: alert, oriented x 3, cooperative Skin Exam: normal color SpO2 Interpretation: normal SpO2: 99 O2 Delivery: Room Air Ordered Tests: Active Orders 24 hr Category Date Time Status ANKLE (3 VIEWS) Stat Exams 12/06/24 18:34 Taken Medication Summary Discontinued Medications Generic Name Dose Route Start Last Admin Trade Name Freq PRN Reason Stop Dose Admin Hydrocodone Bitart/Acetaminophen 2 tab 12/06/24 18:58 Hydrocodone/Apap 5/325 1 Tab Tablet PO 12/06/24 18:59 STAT ONE - Progress Progress: pain not gone completely Progress Note: 12/06/24 18:58 44 years old female presented in the ER with complaint of right ankle pain and swelling after she tried to jump out of her boat around noon time and twisted her ankle. Patient reports gradually increasing moderate to severe sharp shooting pain with increased swelling anterior shoulder, unable to have any weightbearing. No numbness or tingling distally. No injury anywhere else. Diffuse swelling anteriorly right ankle with minimal swelling of the lateral malleolus area. Minimal tenderness on the both malleoli. Intact range of motion but painful. Distal neurovascular intact. She is given pain medication for symptomatic relief. X-rays are negative for fracture dislocation reviewed by me, official final read is pending. I believe patient has ankle sprain, placed in a long walking boot and recommended taking pain medications and outpatient follow-up. Discussed signs symptoms of worsening return to ER which she seems understanding. Stable for discharge. Counseled pt/family regarding: diagnosis, need for follow-up, rad results Medical Desision Making - Independent Historian Additional History obtained from: Spouse - Diagnostic Testing Diagnostic test were ordered, analyzed, and reviewed by me: Yes Radiological Interpretation: Interpreted by me, Reviewed by me - Risk of complications The pt has a mod risk of morbidity or mortality based on: Need for prescription drug management - Departure Departure Disposition: Home Clinical Impression: Ankle sprain Condition: Stable Critical Care Time: No Referrals: DOCTOR,NO FAMILY [Primary Care Provider] - Follow up/PCP as directed PAMELA PROCTOR DPM [ACTIVE STAFF] - Follow up/PCP as directed (Call for appointment for reevaluation) Instructions: Ankle sprain - ED discharge instructions Additional Instructions: Intermittent ice application. Weightbearing as tolerated. Take pain medications as needed. Follow-up with podiatry/orthopedics for reevaluation. Return to ER for any worsening. Prescriptions: Ibuprofen 600 mg PO Q6HPRN PRN 10 Days #20 tablet PRN Reason: Pain
[2024-12-06] MEDS ORDERED: NORCO 5/325 MG ONE (19:10)
[2024-12-06] MEDS: NORCO 5/325 MG PO ONE (19:11)
[2024-12-06 19:23] VITALS: BP 128/83; PULSE 70; RESP 17
--- NOTE | 2024-12-07 09:23 | XRAY ---
Indication: Pain, swelling, and bruising following fall. Comparison: None 3 view right ankle demonstrates tiny posterior/small plantar heel spurs and moderate soft tissue swelling. No other bony, articular, or soft tissue abnormalities.
== END 2024-12-06 19:20 | disposition home or self-care (01) ==
LOC: ED 18:24
DX: S93.401A Sprain of unspecified ligament of right ankle, initial encounter (principal); X50.0XXA Overexertion from strenuous movement or load, initial encounter; Z79.899 Other long term (current) drug therapy
CPT/HCPCS: 73610; 99283; L4386; A9270-GY